=== PATIENT | male | born 1995 | race Two or more races ===

== ENCOUNTER 2017-02-09 22:00 | Emergency (ER) | payer OTHER ==
[~2017-02-09] VITALS: Ht 175.3 cm; Wt 76.2 kg
[2017-02-09 22:10] VITALS: BP 122/69
[2017-02-09] MEDS ORDERED: ZOFRAN ODT4 MG ORAL (22:22)
[2017-02-09] MEDS ORDERED: BENTYL10 MG ORAL (22:22)
--- NOTE | 2017-02-09 22:29 | Emergency Room Report ---
History of Present Illness General Chief Complaint: Vomiting Source: Patient Present Illness HPI 21-year-old male walks in with chief complaint of multiple episodes of nausea, vomiting and diarrhea since last night Denies associated abdominal pain now had abdominal pain last night but pain resolved after vomiting and diarrhea Smoke cigarettes Had multiple meals yesterday, not sure which food made him sick no Sick contacts, no previous abdominal surgery States feels much better after having Pepto-Bismol Allergies: Coded Allergies: No Known Allergies (Unverified , 02/09/17) Patient History Past Medical History: none Past Surgical History: none Pertinent Family History: none Social History: Denies: smoking, alcohol use, drug use Immunizations: UTD Reviewed Nursing Documentation: PMH: Agreed, PSxH: Agreed Nursing Documentation-PMH Past Medical History: No History, Except For Hx Asthma: Yes Review of Systems All Other Systems: negative except mentioned in HPI Physical Exam Vital Signs Date Time Temp Pulse Resp B/P (MAP) Pulse Ox O2 Delivery O2 Flow Rate FiO2 02/09/17 22:06 99.1 111 17 122/69 97 Room Air Sp02 EP Interpretation: reviewed, normal General Appearance: normal inspection, well appearing, no apparent distress, alert, GCS 15, non-toxic Head: normocephalic, atraumatic Eyes: bilateral eye PERRL, bilateral eye EOMI ENT: normal ENT inspection, hearing grossly normal, normal voice Neck: normal inspection, full range of motion, supple, no bony tend Respiratory: normal inspection, lungs clear, normal breath sounds, no respiratory distress, no retraction, no wheezing Cardiovascular #1: regular rate, rhythm, no edema Gastrointestinal: normal inspection, normal bowel sounds, non tender, soft, no guarding, no hernia Genitourinary: no CVA tenderness Musculoskeletal: normal inspection, back normal, normal range of motion, Rainer' s Sign negative Neurologic: normal inspection, alert, responsive, speech normal Psychiatric: normal inspection, judgement/insight normal, mood/affect normal Skin: normal inspection, normal color, no rash Medical Decision Making Diagnostic Impression: Primary Impression: Gastroenteritis ER Course 21-year-old male with likely a viral gastroenteritis Possibly food poisoning vital Signs stable, febrile Abdomen is grossly nontender, nonfocal low Suspicion for acute bacterial or surgical process this time Given GI cocktail with improvement of symptoms Recommended bland diet ER course: Patient has remained stable during ED stay. Patient is to be discharged to home. Prescriptions given are zofran, bentyl Patient is instructed to follow up with their primary care doctor within 5 days. Strict return precautions discussed with patient such as fever, chills, worsening/severe pain, nausea, vomiting, which may indicate severe illness. Patient verbalizes understanding and agrees with plan. Please note that this Emergency Department Report was dictated using [employer] technology software, occasionally this can lead to erroneous entry secondary to interpretation by the dictation equipment Last Vital Signs Date Time Temp Pulse Resp B/P (MAP) Pulse Ox O2 Delivery O2 Flow Rate FiO2 02/09/17 22:06 99.1 111 17 122/69 97 Room Air Status: improved Disposition: HOME, SELF-CARE Condition: Improved Scripts Ondansetron Odt* (ZOFRAN ODT*) 4 Mg Tab.rapdis 4 MG ORAL Q12HR Y for Nausea & Vomiting for 3 Days, #6 TAB 0 Refills Prov: RAYMOND GUZMAN M.D. 02/09/17 Dicyclomine Hcl* (BENTYL*) 10 Mg Capsule 10 MG ORAL TID Y for Diarrhea for 7 Days, #30 CAP Prov: RAYMOND GUZMAN M.D. 02/09/17 Referrals: SOPHIA MERCADO,REFERRING (PCP) Patient Instructions: Viral Gastroenteritis, Adult, [id number] RAYMOND GUZMAN M.D. Feb 09, 2017 22:29
[2017-02-09 22:30] VITALS: BP 122/69
[2017-02-09] MEDS ORDERED: Metoclopramide 10mg/10ml Liq ORAL ONE (22:30)
[2017-02-09] MEDS ORDERED: Dicyclomine HCl 10mg/5ml oral soln ORAL ONE (22:30)
== END 2017-02-09 22:30 | disposition home or self-care (01) ==
LOC: EMR 22:15
DX: K52.9 Noninfective gastroenteritis and colitis, unspecified (principal); J45.909 Unspecified asthma, uncomplicated
CPT/HCPCS: 99284